=== PATIENT | female | born 1995 | race Caucasian/White ===

== ENCOUNTER → 2019-03-16 15:04 | Observation (INO) ==
[2019-03-16 11:26] LABS: Basophils # 0.1 K/mcL (0.0-0.2); Basophils % 0.6 %; Eosinophils # 0.1 K/mcL (0.0-0.6); Eosinophils % 0.6 %; Hematocrit 36.7 % (35.3-44.9); Hemoglobin 12.1 g/dL (11.5-15.4); Immature Granulocytes % 3.3 % (0-4); Lymphocytes # 1.6 K/mcL (0.6-4.6); Lymphocytes % 15.2 %; Mean Corpuscular Hemoglobin 30.6 pg (28.0-33.3); Mean Corpuscular Volume 92.7 fL (83.0-100.0); Mean Platelet Volume 9.6 fL (9.4-12.4); Monocytes # 0.7 K/mcL (0.0-1.3); Monocytes % 6.9 %; Neutrophils # 7.9 K/mcL (1.6-8.9); Platelet Count 265 K/mcL (140-400); Red Blood Count 3.96 M/mcL (3.82-4.97); Red Cell Distribution Width 12.8 % (11.5-14.5); Segmented Neutrophils % 73.4 %; White Blood Count 10.8 K/mcL (4.3-11.1)
[2019-03-16 11:33] LABS: Protein/Creatinine Ratio,Urine 0.11 mg/mg (0.00-0.20)
[2019-03-16 11:34] LABS: Amphetamine Screen,Urine Negative ng/mL (Cutoff=1000); Barbiturate Screen,Urine Negative ng/mL (Cutoff=200); Benzodiazepines Screen,Urine Negative ng/mL (Cutoff=200); Cannabinoid Screen,Urine Negative ng/mL (Cutoff = 50); Cocaine Screen,Urine Negative ng/mL (Cutoff= 300); Opiate Screen,Urine Negative ng/mL (Cutoff=300); Phencyclidine Screen,Urine Negative ng/mL (Cutoff=25)
[2019-03-16 11:44] LABS: Alanine Aminotransferase 8 Units/L (7-52); Aspartate Amino Transferase 13 Units/L (13-39); BUN/Creatinine Ratio 13 (6-26); Blood Urea Nitrogen 7 mg/dL (6-20); Lactate Dehydrogenase 129 Units/L (140-271); Uric Acid 2.9 mg/dL (2.3-7.6); eGFR For African Americans > 60 (> 60); eGFR For Non-African Americans > 60 (> 60)
[2019-03-16 14:56] LABS: Bilirubin,Urine Negative (Negative); Blood,Urine Negative (Negative); Clarity,Urine Clear (Clear); Color,Urine Yellow (Yellow); Glucose,Urine (UA) Normal (Normal); Ketones,Urine Negative (Negative); Leukocyte Esterase,Urine Negative (Negative); Nitrite,Urine Negative (Negative); PH,Urine 6.5 pH Units (5.0-8.0); Protein,Urine Negative (Neg-Trace); Specific Gravity,Urine 1.012 (1.010-1.025); Urobilinogen,Urine Normal (Normal)
[~2019-03-16 15:04] MED LIST: Ondansetron 4 MG/2 ML VIAL IVP ONE
--- NOTE | 2019-03-16 15:29 | OB/GYN Progress Note ---
Date of Encounter: 03/16/19 Time of Encounter: 15:28 - Assessment and Plan (1) 24 weeks gestation of Status: Acute (2) Right flank pain Status: Acute Renal ultrasound shows no evidence of kidney stones. Patient with good emptying of bladder noted on ultrasound. Awaiting UA. Patient desires to discharge home awaiting for urinary results. Discharged home with when to return precautions. Subjective - Subjective Interval history: 24+5 weeks gestation presents to triage with complaints of right flank pain. Patient states she is been having right flank pain since last night, resting is a 2 will have spasms up to an 8. Reports good movement, denies vaginal bleeding, contractions or leaking of fluid. Patient with a history of kidney stones. She states this feels similar to when she has had kidney stones in the past. Denies dysuria, urgency or hematuria. Patient does state at times she feels like she is not completely emptying her bladder. Antepartum ROS: movement normal, no loss of fluid, no vaginal bleeding, no contractions Objective - Vital Signs Vital Signs: Intake and Output 03/15/19 03/16/19 03/16/19 23:59 07:59 15:59 Other: Weight 107.8 kg Patient Weight 03/16/19 23:59 Weight 107.8 kg - Exam FHR: auscultation normal Abdomen: Present: soft, gravid Comments: Very mild right CVA tenderness. - Labs Labs: Abnormal lab results Creatinine 0.54 mg/dL (0.60-1.20) L 03/16/19 11:12 Lactate Dehydrogenase 129 Units/L (140-271) L 03/16/19 11:12
== END | disposition home or self-care (01) ==
LOC: 1NENULAB
PROVIDERS: ADMIT Advanced Practice Midwife; ATTEND Advanced Practice Midwife

== ENCOUNTER → 2019-03-29 21:49 | Observation (INO) ==
[2019-03-29 21:28] LABS: Bilirubin,Urine Negative (Negative); Blood,Urine Negative (Negative); Clarity,Urine Clear (Clear); Color,Urine Yellow (Yellow); Glucose,Urine (UA) Normal (Normal); Ketones,Urine Negative (Negative); Leukocyte Esterase,Urine Negative (Negative); Nitrite,Urine Negative (Negative); Protein,Urine Negative (Neg-Trace); Specific Gravity,Urine 1.009 (1.010-1.025); Urobilinogen,Urine Normal (Normal)
[2019-03-29 21:38] LABS: Amphetamine Screen,Urine Negative ng/mL (Cutoff=1000); Barbiturate Screen,Urine Negative ng/mL (Cutoff=200); Benzodiazepines Screen,Urine Negative ng/mL (Cutoff=200); Cannabinoid Screen,Urine Negative ng/mL (Cutoff = 50); Cocaine Screen,Urine Negative ng/mL (Cutoff= 300); Opiate Screen,Urine Negative ng/mL (Cutoff=300); Phencyclidine Screen,Urine Negative ng/mL (Cutoff=25)
[2019-03-29 22:28] LABS: Candida DNA Not Detected (Not Detect); Gardnerella DNA Not Detected (Not Detect); Trichomonas DNA Not Detected (Not Detect)
== END | disposition home or self-care (01) ==
LOC: 1NENULAB
PROVIDERS: ADMIT Advanced Practice Midwife; ATTEND Advanced Practice Midwife

== ENCOUNTER → 2019-05-01 20:58 | Observation (INO) ==
[2019-05-01 19:52] LABS: Basophils # 0.1 K/mcL (0.0-0.2); Basophils % 0.5 %; Eosinophils # 0.1 K/mcL (0.0-0.6); Eosinophils % 0.9 %; Hematocrit 33.5 % (35.3-44.9); Hemoglobin 11.5 g/dL (11.5-15.4); Immature Granulocytes % 2.5 % (0-4); Lymphocytes # 1.4 K/mcL (0.6-4.6); Lymphocytes % 13.9 %; Mean Corpuscular HGB Conc 34.3 g/dL (31.6-35.5); Mean Corpuscular Hemoglobin 31.4 pg (28.0-33.3); Mean Corpuscular Volume 91.5 fL (83.0-100.0); Mean Platelet Volume 9.6 fL (9.4-12.4); Monocytes # 0.8 K/mcL (0.0-1.3); Monocytes % 7.7 %; Neutrophils # 7.4 K/mcL (1.6-8.9); Platelet Count 252 K/mcL (140-400); Red Blood Count 3.66 M/mcL (3.82-4.97); Red Cell Distribution Width 12.6 % (11.5-14.5); Segmented Neutrophils % 74.5 %
[2019-05-01 20:00] LABS: Protein/Creatinine Ratio,Urine 0.18 mg/mg (0.00-0.20)
[2019-05-01 20:11] LABS: Alanine Aminotransferase 11 Units/L (7-52); Aspartate Amino Transferase 16 Units/L (13-39); BUN/Creatinine Ratio 11 (6-26); Blood Urea Nitrogen 6 mg/dL (6-20); Lactate Dehydrogenase 131 Units/L (140-271); Uric Acid 3.3 mg/dL (2.3-7.6); eGFR For African Americans > 60 (> 60); eGFR For Non-African Americans > 60 (> 60)
== END | disposition home or self-care (01) ==
LOC: 1NENULAB
PROVIDERS: ADMIT Obstetrics & Gynecology; ATTEND Obstetrics & Gynecology

== ENCOUNTER 2019-05-20 15:35 | Observation (INO) ==
[2019-05-20 16:42] LABS: Basophils % 0.5 %; Eosinophils % 0.5 %; Hematocrit 35.7 % (35.3-44.9); Immature Granulocytes % 3.8 % (0-4); Lymphocytes # 1.4 K/mcL (0.6-4.6); Lymphocytes % 15.8 %; Mean Corpuscular HGB Conc 33.6 g/dL (31.6-35.5); Mean Corpuscular Volume 92.2 fL (83.0-100.0); Mean Platelet Volume 10.1 fL (9.4-12.4); Monocytes # 0.7 K/mcL (0.0-1.3); Neutrophils # 6.3 K/mcL (1.6-8.9); Platelet Count 260 K/mcL (140-400); Red Blood Count 3.87 M/mcL (3.82-4.97); Red Cell Distribution Width 12.7 % (11.5-14.5); Segmented Neutrophils % 71.4 %; White Blood Count 8.9 K/mcL (4.3-11.1)
[2019-05-20 16:51] LABS: Protein/Creatinine Ratio,Urine 0.12 mg/mg (0.00-0.20)
[2019-05-20 17:27] LABS: Alanine Aminotransferase 8 Units/L (7-52); Aspartate Amino Transferase 15 Units/L (13-39); BUN/Creatinine Ratio 14 (6-26); Blood Urea Nitrogen 7 mg/dL (6-20); Lactate Dehydrogenase 147 Units/L (140-271); Uric Acid 3.2 mg/dL (2.3-7.6); eGFR For African Americans > 60 (> 60); eGFR For Non-African Americans > 60 (> 60)
== END 2019-05-20 18:09 | disposition home or self-care (01) ==
LOC: 1NENULAB
PROVIDERS: ADMIT Registered Nurse; ATTEND Registered Nurse

== ENCOUNTER → 2019-05-22 22:56 | Observation (INO) ==
[2019-05-22 19:41] LABS: Amphetamine Screen,Urine Negative ng/mL (Cutoff=1000); Barbiturate Screen,Urine Negative ng/mL (Cutoff=200); Benzodiazepines Screen,Urine Negative ng/mL (Cutoff=200); Cannabinoid Screen,Urine Negative ng/mL (Cutoff = 50); Cocaine Screen,Urine Negative ng/mL (Cutoff= 300); Opiate Screen,Urine Negative ng/mL (Cutoff=300); Phencyclidine Screen,Urine Negative ng/mL (Cutoff=25)
[2019-05-22 21:43] LABS: Candida DNA Not Detected (Not Detect); Gardnerella DNA Not Detected (Not Detect); Trichomonas DNA Not Detected (Not Detect)
[2019-05-22 22:09] LABS: Bilirubin,Urine Negative (Negative); Blood,Urine Negative (Negative); Clarity,Urine Cloudy (Clear); Color,Urine Yellow (Yellow); Glucose,Urine (UA) Normal (Normal); Ketones,Urine Negative (Negative); Leukocyte Esterase,Urine Negative (Negative); Nitrite,Urine Negative (Negative); Protein,Urine Negative (Neg-Trace); Specific Gravity,Urine 1.016 (1.010-1.025); Urobilinogen,Urine Normal (Normal)
[2019-05-22 22:15] LABS: Bacteria,Urine Few per hpf (None-Few); Hyaline Casts,Urine None Seen per lpf (None-Few); RBC,Urine 0-3 per hpf (0-3); Squamous Epithelial Cell,Urine Many per lpf (None-Few); WBC,Urine 0-3 per hpf (0-3)
[~2019-05-22 22:56] MED LIST changes: +NIFEdipine 10 MG CAPSULE PO ONE; -Ondansetron 4 MG/2 ML VIAL IVP ONE
== END | disposition home or self-care (01) ==
LOC: 1NENULAB
PROVIDERS: ADMIT Obstetrics & Gynecology; ATTEND Obstetrics & Gynecology

== ENCOUNTER 2019-06-07 18:20 | Observation (INO) ==
[2019-06-07 19:04] LABS: Basophils # 0.1 K/mcL (0.0-0.2); Basophils % 0.6 %; Eosinophils # 0.1 K/mcL (0.0-0.6); Eosinophils % 0.6 %; Hematocrit 35.9 % (35.3-44.9); Hemoglobin 12.3 g/dL (11.5-15.4); Immature Granulocytes % 3.5 % (0-4); Lymphocytes # 1.9 K/mcL (0.6-4.6); Lymphocytes % 18.7 %; Mean Corpuscular HGB Conc 34.3 g/dL (31.6-35.5); Mean Corpuscular Hemoglobin 31.4 pg (28.0-33.3); Mean Corpuscular Volume 91.6 fL (83.0-100.0); Mean Platelet Volume 10.1 fL (9.4-12.4); Monocytes # 0.9 K/mcL (0.0-1.3); Monocytes % 8.5 %; Neutrophils # 6.9 K/mcL (1.6-8.9); Platelet Count 263 K/mcL (140-400); Red Blood Count 3.92 M/mcL (3.82-4.97); Red Cell Distribution Width 13.2 % (11.5-14.5); Segmented Neutrophils % 68.1 %; White Blood Count 10.1 K/mcL (4.3-11.1)
[2019-06-07 19:30] LABS: Protein/Creatinine Ratio,Urine 0.16 mg/mg (0.00-0.20)
[2019-06-07 19:33] LABS: Amphetamine Screen,Urine Negative ng/mL (Cutoff=1000); Barbiturate Screen,Urine Negative ng/mL (Cutoff=200); Benzodiazepines Screen,Urine Negative ng/mL (Cutoff=200); Cannabinoid Screen,Urine Negative ng/mL (Cutoff = 50); Cocaine Screen,Urine Negative ng/mL (Cutoff= 300); Opiate Screen,Urine Negative ng/mL (Cutoff=300); Phencyclidine Screen,Urine Negative ng/mL (Cutoff=25)
[2019-06-07 19:36] LABS: Alanine Aminotransferase 13 Units/L (7-52); Aspartate Amino Transferase 19 Units/L (13-39); BUN/Creatinine Ratio 14 (6-26); Blood Urea Nitrogen 8 mg/dL (6-20); Lactate Dehydrogenase 134 Units/L (140-271); Uric Acid 3.4 mg/dL (2.3-7.6); eGFR For African Americans > 60 (> 60); eGFR For Non-African Americans > 60 (> 60)
== END 2019-06-07 20:28 | disposition home or self-care (01) ==
LOC: 1NENULAB
PROVIDERS: ADMIT Registered Nurse; ATTEND Registered Nurse

== ENCOUNTER → 2019-06-25 01:40 | Observation (INO) ==
[2019-06-25 01:18] LABS: Amphetamine Screen,Urine Negative ng/mL (Cutoff=1000); Barbiturate Screen,Urine Negative ng/mL (Cutoff=200); Benzodiazepines Screen,Urine Negative ng/mL (Cutoff=200); Cannabinoid Screen,Urine Negative ng/mL (Cutoff = 50); Cocaine Screen,Urine Negative ng/mL (Cutoff= 300); Opiate Screen,Urine Negative ng/mL (Cutoff=300); Phencyclidine Screen,Urine Negative ng/mL (Cutoff=25)
[~2019-06-25 01:40] MED LIST changes: -NIFEdipine 10 MG CAPSULE PO ONE; +Ondansetron ODT 4 MG TAB.RAPDIS SL ONE
== END | disposition home or self-care (01) ==
LOC: 1NENULAB
PROVIDERS: ADMIT Advanced Practice Midwife; ATTEND Advanced Practice Midwife

== ENCOUNTER 2019-06-25 20:48 | Inpatient (IN) ==
[2019-06-25 19:19] LABS: Hematocrit 36.1 % (35.3-44.9); Hemoglobin 12.1 g/dL (11.5-15.4); Mean Corpuscular HGB Conc 33.5 g/dL (31.6-35.5); Mean Corpuscular Hemoglobin 30.9 pg (28.0-33.3); Mean Corpuscular Volume 92.3 fL (83.0-100.0); Mean Platelet Volume 10.3 fL (9.4-12.4); Platelet Count 261 K/mcL (140-400); Red Blood Count 3.91 M/mcL (3.82-4.97); Red Cell Distribution Width 13.3 % (11.5-14.5); Segmented Neutrophils % 69.5 %; White Blood Count 8.9 K/mcL (4.3-11.1)
[2019-06-25 19:20] LABS: Basophils % 0.5 %; Eosinophils # 0.1 K/mcL (0.0-0.6); Eosinophils % 0.7 %; Immature Granulocytes % 2.5 % (0-4); Lymphocytes # 1.7 K/mcL (0.6-4.6); Lymphocytes % 19.7 %; Monocytes # 0.6 K/mcL (0.0-1.3); Monocytes % 7.1 %; Neutrophils # 6.2 K/mcL (1.6-8.9)
[2019-06-25 19:31] LABS: Amphetamine Screen,Urine Negative ng/mL (Cutoff=1000); Barbiturate Screen,Urine Negative ng/mL (Cutoff=200); Benzodiazepines Screen,Urine Negative ng/mL (Cutoff=200); Cannabinoid Screen,Urine Negative ng/mL (Cutoff = 50); Cocaine Screen,Urine Negative ng/mL (Cutoff= 300); Creatinine,Urine 59 mg/dL; Opiate Screen,Urine Negative ng/mL (Cutoff=300); Phencyclidine Screen,Urine Negative ng/mL (Cutoff=25); Protein/Creatinine Ratio,Urine 0.22 mg/mg (0.00-0.20)
[2019-06-25 19:41] LABS: Alanine Aminotransferase 14 Units/L (7-52); Aspartate Amino Transferase 23 Units/L (13-39); BUN/Creatinine Ratio 16 (6-26); Blood Urea Nitrogen 10 mg/dL (6-20); Lactate Dehydrogenase 161 Units/L (140-271); Uric Acid 3.4 mg/dL (2.3-7.6); eGFR For African Americans > 60 (> 60); eGFR For Non-African Americans > 60 (> 60)
[~2019-06-25 20:48] MED LIST changes: +Famotidine 20 MG/2 ML VIAL IVP PRN; +Metoclopramide 10 MG/2 ML VIAL IVP PRN; +Naloxone 0.4 MG/ML INJ IVP PRN; -Ondansetron ODT 4 MG TAB.RAPDIS SL ONE
[2019-06-25] MEDS ORDERED: Ringers Solution, Lactated 1,000 ML IVC SCH (21:00)
[2019-06-25] MEDS ORDERED: EPHEDrine 50 MG/ML VIAL IVP PRN (21:02)
[2019-06-25] MEDS ORDERED: Epidural Premix (fent/bupiv) 110 ML EP SCH (21:15)
[2019-06-25] MEDS: miSOPROStoL 25 MCG TABLET PO PRN (21:22)
[2019-06-26] MEDS: miSOPROStoL 25 MCG TABLET PO PRN (01:55)
[2019-06-26] MEDS ORDERED: Ondansetron 4 MG/2 ML VIAL IVP PRN (02:54)
[2019-06-26] MEDS ORDERED: Oxytocin 20 units/ LR 1000 mL 20 UNIT/1,000 ML BAG IVC SCH (07:45)
[2019-06-26] MEDS ORDERED: Acetaminophen 325 MG TABLET PO PRN (09:46)
[2019-06-26] MEDS: *HR* FentaNYL (PF) 100 MCG/2 ML VIAL IVP PRN ×2 (18:17→19:24)
[2019-06-26] MEDS ORDERED: *HR* FentaNYL (PF) 100 MCG/2 ML VIAL ONE (20:36)
[2019-06-26] MEDS ORDERED: *HR* Oxytocin 10 UNIT/ML VIAL IM ONE (21:07)
[2019-06-26] MEDS ORDERED: Ringers Solution, Lactated 1,000 ML ONE (21:07)
[2019-06-26] MEDS ORDERED: Propofol 500 MG/50 ML INFUS..BTL ONE (21:07)
[2019-06-27] MEDS ORDERED: Ibuprofen 600 MG TABLET PO PRN (02:01)
[2019-06-27] MEDS ORDERED: Benzocaine/Menthol 56 GM AEROSOL SPRAY TP PRN (02:01)
[2019-06-27] MEDS ORDERED: Oxytocin 20 units/ LR 1000 mL 20 UNIT/1,000 ML BAG IVC SCH (02:01)
[2019-06-27] MEDS ORDERED: Oxytocin 20 units/ LR 1000 mL 20 UNIT/1,000 ML BAG IVC ONE (02:01)
[2019-06-27] MEDS ORDERED: Lanolin 7 G OINT...G. TP PRN (02:01)
[2019-06-27] MEDS: Prenatal Vit/FA 1 EACH TABLET PO SCH (07:55)
[2019-06-27] MEDS: Acetaminophen 325 MG TABLET PO PRN ×2 (07:56→15:01)
[2019-06-27 08:11] LABS: Basophils % 0.2 %; Eosinophils % 0.1 %; Hematocrit 28.5 % (35.3-44.9); Immature Granulocytes % 1.9 % (0-4); Lymphocytes % 12.4 %; Mean Corpuscular Hemoglobin 31.6 pg (28.0-33.3); Mean Corpuscular Volume 92.8 fL (83.0-100.0); Mean Platelet Volume 10.4 fL (9.4-12.4); Monocytes # 1.3 K/mcL (0.0-1.3); Monocytes % 7.7 %; Neutrophils # 12.7 K/mcL (1.6-8.9); Platelet Count 282 K/mcL (140-400); Red Blood Count 3.07 M/mcL (3.82-4.97); Red Cell Distribution Width 13.6 % (11.5-14.5); Segmented Neutrophils % 77.7 %
[2019-06-27 08:28] LABS: Hemoglobin 9.7 g/dL (11.5-15.4); White Blood Count 16.3 K/mcL (4.3-11.1)
[2019-06-28] MEDS: Acetaminophen 325 MG TABLET PO PRN ×2 (00:04→09:56)
[2019-06-28 08:15] VITALS: BP 124/75
[2019-06-28] MEDS ORDERED: NIFEdipine XL (24 HR) 30 MG TAB.ER.24 PO SCH (09:00)
[2019-06-28] MEDS: Prenatal Vit/FA 1 EACH TABLET PO SCH (09:57)
[2019-06-28] MEDS ORDERED: Benzocaine/Menthol 56 GM AEROSOL SPRAY TP ONE (12:40)
== END 2019-06-28 11:25 | disposition home or self-care (01) | DRG 560 ==
LOC: 1NENULAB → OBSVTOIN 20:48 → 1NENULAB 06-26 03:00 → 1NENUOBS 06-26 23:41
PROVIDERS: ADMIT Obstetrics & Gynecology; ATTEND Obstetrics & Gynecology

== ENCOUNTER → 2020-05-12 22:25 | Observation (INO) ==
[2020-05-12 22:16] LABS: Bacteria,Urine Few per hpf (None-Few); Bilirubin,Urine Negative (Negative); Blood,Urine Negative (Negative); Clarity,Urine Clear (Clear); Color,Urine Yellow (Yellow); Glucose,Urine (UA) Normal (Normal); Ketones,Urine Negative (Negative); Leukocyte Esterase,Urine Negative (Negative); Mucus,Urine Few per lpf (None-Few); Nitrite,Urine Negative (Negative); PH,Urine 5.5 pH Units (5.0-8.0); Protein,Urine 30 mg/dL (Neg-Trace); RBC,Urine 0-3 per hpf (0-3); Specific Gravity,Urine > 1.030 (1.010-1.025); Squamous Epithelial Cell,Urine Few per hpf (None-Few); Urobilinogen,Urine Normal (Normal); WBC,Urine 0-3 per hpf (0-3)
[2020-05-12 23:24] LABS: Candida DNA Not Detected (Not Detect); Gardnerella DNA DETECTED (Not Detect); Trichomonas DNA Not Detected (Not Detect)
== END | disposition home or self-care (01) ==
LOC: 1NENULAB
PROVIDERS: ADMIT Student in an Organized Health Care Education/Training Program; ATTEND Student in an Organized Health Care Education/Training Program

== ENCOUNTER 2020-06-13 18:24 | Observation (INO) ==
[2020-06-13 19:15] LABS: Basophils % 0.3 %; Eosinophils # 0.1 K/mcL (0.0-0.6); Eosinophils % 0.8 %; Hematocrit 36.3 % (35.3-44.9); Hemoglobin 11.7 g/dL (11.5-15.4); Immature Granulocytes % 1.6 % (0-4); Lymphocytes # 1.9 K/mcL (0.6-4.6); Lymphocytes % 18.2 %; Mean Corpuscular HGB Conc 32.2 g/dL (31.6-35.5); Mean Corpuscular Hemoglobin 30.7 pg (28.0-33.3); Mean Corpuscular Volume 95.3 fL (83.0-100.0); Mean Platelet Volume 9.7 fL (9.4-12.4); Monocytes # 0.6 K/mcL (0.0-1.3); Monocytes % 5.7 %; Neutrophils # 7.6 K/mcL (1.6-8.9); Platelet Count 257 K/mcL (140-400); Red Blood Count 3.81 M/mcL (3.82-4.97); Red Cell Distribution Width 12.4 % (11.5-14.5); Segmented Neutrophils % 73.4 %; White Blood Count 10.3 K/mcL (4.3-11.1)
== END 2020-06-13 20:51 | disposition home or self-care (01) ==
LOC: 1NENULAB
PROVIDERS: ADMIT Obstetrics & Gynecology; ATTEND Obstetrics & Gynecology

== ENCOUNTER → 2020-08-05 19:46 | Observation (INO) | END | disposition home or self-care (01) | LOC: 1NENULAB | PROVIDERS: ADMIT Obstetrics & Gynecology; ATTEND Obstetrics & Gynecology ==

== ENCOUNTER 2020-08-31 12:03 | Inpatient (IN) ==
[2020-08-31] MEDS ORDERED: Clindamycin 900 MG/50 ML 900 MG/50 ML IV.SOLN IVPB ONE (13:30)
[2020-08-31] MEDS ORDERED: Famotidine 20 MG/2 ML VIAL IVP ONE (13:30)
[2020-08-31] MEDS ORDERED: Oxytocin 20 units/ LR 1000 mL 20 UNIT/1,000 ML BAG IVC ONE (13:30)
[2020-08-31] MEDS ORDERED: Oxytocin 20 units/ LR 1000 mL 20 UNIT/1,000 ML BAG IVC SCH ×3 (13:30→19:43)
[2020-08-31] MEDS ORDERED: Metoclopramide 10 MG/2 ML VIAL IVP ONE (13:30)
[2020-08-31] MEDS ORDERED: 0.9 % Sodium Chloride 1,000 ML ONE (13:36)
[2020-08-31 13:40] LABS: Basophils % 0.2 %; Eosinophils % 0.4 %; Hematocrit 36.7 % (35.3-44.9); Hemoglobin 11.7 g/dL (11.5-15.4); Immature Granulocytes % 1.1 % (0-4); Lymphocytes # 1.6 K/mcL (0.6-4.6); Lymphocytes % 16.6 %; Mean Corpuscular HGB Conc 31.9 g/dL (31.6-35.5); Mean Corpuscular Hemoglobin 29.8 pg (28.0-33.3); Mean Corpuscular Volume 93.6 fL (83.0-100.0); Mean Platelet Volume 10.5 fL (9.4-12.4); Monocytes # 0.7 K/mcL (0.0-1.3); Monocytes % 6.9 %; Neutrophils # 7.2 K/mcL (1.6-8.9); Platelet Count 229 K/mcL (140-400); Red Blood Count 3.92 M/mcL (3.82-4.97); Red Cell Distribution Width 12.8 % (11.5-14.5); Segmented Neutrophils % 74.8 %; White Blood Count 9.7 K/mcL (4.3-11.1)
[2020-08-31] MEDS: 0.9 % Sodium Chloride 1,000 ML IVC SCH ×2 (13:45→14:53)
[2020-08-31] MEDS ORDERED: Gentamicin 450 MG in 0.9 % Sodium Chloride 100 ML IVPB ONE (13:45)
[2020-08-31 13:53] LABS: Amphetamine Screen,Urine Negative ng/mL (Cutoff=1000); Barbiturate Screen,Urine Negative ng/mL (Cutoff=200); Benzodiazepines Screen,Urine Negative ng/mL (Cutoff=200); Cannabinoid Screen,Urine Negative ng/mL (Cutoff = 50); Cocaine Screen,Urine Negative ng/mL (Cutoff= 300); Opiate Screen,Urine Negative ng/mL (Cutoff=300); Phencyclidine Screen,Urine Negative ng/mL (Cutoff=25)
[2020-08-31] MEDS ORDERED: *HR* FentaNYL (PF) 100 MCG/2 ML VIAL ONE (15:01)
[2020-08-31] MEDS ORDERED: Ringers Solution, Lactated 1,000 ML ONE (15:51)
[2020-08-31] MEDS ORDERED: Acetaminophen IV 1,000 MG/100 ML BAG IVPB ONE (15:56)
[2020-08-31] MEDS ORDERED: Ondansetron 4 MG/2 ML VIAL ONE (15:57)
[2020-08-31] MEDS ORDERED: *HR* Oxytocin 10 UNIT/ML VIAL IM ONE (15:59)
[2020-08-31] MEDS ORDERED: Promethazine 6.25 MG in Water for inj. (sterile) 20 ML IVPB PRN (16:25)
[2020-08-31] MEDS ORDERED: *HR* FentaNYL (PF) 100 MCG/2 ML VIAL IVP PRN (16:25)
[2020-08-31] MEDS ORDERED: Naloxone 0.4 MG/ML INJ IVP PRN ×2 (16:25→19:43)
[2020-08-31] MEDS ORDERED: Ondansetron 4 MG/2 ML VIAL IVP PRN ×2 (16:25→19:43)
[2020-08-31] MEDS ORDERED: *HR* Meperidine 25 MG/ML SYRINGE IVP PRN (16:25)
[2020-08-31] MEDS ORDERED: *HR* OxyCODONE Immed Rel 5 MG TABLET PO PRN (16:25)
[2020-08-31] MEDS ORDERED: *HR* Ropivacaine/PF 0.5% 20 ML VIAL ONE (16:28)
[2020-08-31] MEDS ORDERED: Ketorolac 30 MG/ML VIAL ONE (17:41)
[2020-08-31] MEDS ORDERED: Metoclopramide 10 MG/2 ML VIAL IVP PRN (19:43)
[2020-08-31] MEDS ORDERED: Sennosides 8.6 MG TABLET PO PRN (19:43)
[2020-08-31] MEDS ORDERED: Acetaminophen 325 MG TABLET PO PRN (19:43)
[2020-08-31] MEDS: *HR* OxyCODONE/APAP 5/325 TABLET PO PRN (20:30)
[2020-09-01] MEDS: *HR* OxyCODONE/APAP 5/325 TABLET PO PRN ×3 (03:10→19:55)
[2020-09-01] MEDS: *HR* OxyCODONE Immed Rel 5 MG TABLET PO PRN ×4 (05:24→23:55)
[2020-09-01] MEDS: Prenatal Vit/FA 1 EACH TABLET PO SCH (08:56)
[2020-09-01] MEDS: Simethicone 80 MG TAB.CHEW PO PRN (19:59)
[2020-09-02] MEDS: *HR* OxyCODONE/APAP 5/325 TABLET PO PRN ×2 (05:08→10:51)
[2020-09-02 07:47] VITALS: BP 134/86
[2020-09-02] MEDS: Prenatal Vit/FA 1 EACH TABLET PO SCH (08:03)
[2020-09-02] MEDS: Simethicone 80 MG TAB.CHEW PO PRN (08:03)
[2020-09-02] MEDS: *HR* OxyCODONE Immed Rel 5 MG TABLET PO PRN (08:08)
== END 2020-09-02 11:25 | disposition home or self-care (01) | DRG 787 ==
LOC: SAMDAY 12:03 → 1NENULAB 12:07 → 1NENUOBS 19:55
PROVIDERS: ADMIT Obstetrics & Gynecology; ATTEND Obstetrics & Gynecology